=== PATIENT | male | born 1985 | race Caucasian/White ===

== ENCOUNTER 2018-02-16 20:34 | Emergency (ER) | payer SELFPAY ==
[2018-02-16] MEDS ORDERED: KETOROLAC 30 MG/1 ML SDV IM ONE (20:49)
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
[2018-02-16] MEDS ORDERED: LIDOCAINE 4%/MENTHOL 1% PATCH TD ONE (21:24)
[2018-02-16] MEDS ORDERED: ACETAMINOPHEN 500 MG TAB PO ONE (21:25)
[2018-02-16 22:25] VITALS: BP 122/76
[2018-02-17] MEDS ORDERED: PATCH REMOVAL 1 EA PATCH TD SCH (21:00)
== END 2018-02-16 22:23 | disposition home or self-care (01) ==
DX: R07.81 Pleurodynia (principal); W29.8XXA Contact with other powered hand tools and household machinery, initial encounter
CPT/HCPCS: J1885